=== PATIENT | male | born 1930 | race Caucasian/White ===

== ENCOUNTER 2022-05-27 19:42 | Emergency (ER) | payer MEDICARE, OTHER ==
[~2022-05-27] VITALS: Ht 170.2 cm; Wt 72.6 kg
--- NOTE | 2022-05-27 19:55 | NUR ---
TO ER BED 13, [id number] FROM [facility] AT THE [facility] C/O F/C CHANGE TODAY NOW HAS PAIN, AAOX3, BREATHING EVEN AND NON LABORED, CONNECTED TO MONITOR, AWAITING MD ALANIZ
[2022-05-27] MEDS ORDERED: LIDOCAINE 2% JEL UROJET 10 ML MM ONE (20:35)
[2022-05-27 21:41] LABS: BASOPHILS % (AUTO) 0.3 % (0.0-2.0); EOSINOPHILS % (AUTO) 0.9 % (0.0-6.0); HEMATOCRIT 38 % (39-51); HEMOGLOBIN 12.7 g/dL (13.5-17.5); LYMPHOCYTES # (AUTO) 0.6 K/uL (0.8-4.8); MEAN CORPUSCULAR HGB CONC 34 g/dl (31.0-36.0); MEAN CORPUSCULAR VOLUME 86 fL (80-96); MONOCYTES # (AUTO) 0.7 K/uL (0.1-1.30); MONOCYTES % (AUTO) 8.1 % (2.0-12.0); NEUTROPHILS # (AUTO) 7.7 K/uL (1.8-8.9); NEUTROPHILS % (AUTO) 84.7 % (43.0-81.0); PLATELET COUNT (AUTO) 121 K/uL (150-450); WHITE BLOOD COUNT (AUTO) 9.1 K/uL (4.3-11.0)
[2022-05-27 21:42] LABS: BILIRUBIN,URINE NEGATIVE (NEGATIVE); COLOR,URINE YELLOW (YELLOW); LEUKOCYTE ESTERASE ,URINE 3+ (NEGATIVE); NITRITE, URINE NEGATIVE (NEGATIVE); PH,URINE 8.5 (5.0-8.0); PROTEIN,URINE 3+ mg/dl (NEGATIVE); UGLUCOSE NEGATIVE (NEGATIVE); UROBILINOGEN,URINE 0.2 EU/dL (0.2)
[2022-05-27 21:57] LABS: CARBON DIOXIDE 23 mmol/L (21-32); CHLORIDE 97 mmol/L (98-107); CREATININE 1.2 mg/dL (0.6-1.3); GLUCOSE 120 mg/dL (74-106); POTASSIUM 4.8 mmol/L (3.5-5.1); SODIUM SERUM 130 mmol/L (136-145); UREA NITROGEN, BLOOD 30 mg/dL (7-18)
[2022-05-27 22:03] LABS: ALANINE AMINOTRANSFERASE 14 U/L (12-78); ALBUMIN 3.4 g/dL (3.4-5.0); ALKALINE PHOSPHATASE 93 U/L (46-116); ASPARTATE AMINOTRANSFERASE 22 U/L (15-37); BILIRUBIN,DIRECT 0.3 mg/dL (0.0-0.2); BILIRUBIN,TOTAL 0.7 mg/dL (0.2-1.0)
[2022-05-27 22:10] LABS: BACTERIA,URINE Many /HPF (None Seen); WBC,URINE 21-50 /HPF (0-3)
[2022-05-27 22:11] LABS: SQUAMOUS EPITHELIAL CELL,UR Few /HPF (None Seen); TRIPLE PHOSPHATE CRYSTAL,UR Moderate /HPF (None Seen)
[2022-05-27 22:12] LABS: URINE AMORPHOUS URATE Many /HPF (None Seen)
[2022-05-27 22:36] LABS: LIPASE 158 U/L (73-393)
[2022-05-27] MEDS ORDERED: CEFTRIAXONE 1GM BAG (ER ONLY) 50 ML IV ONE (22:44)
--- NOTE | 2022-05-27 22:45 | NUR ---
CALLED [facility] SET UP BLS TRANSPORT ETA 60-70 MIN PER EVA
[2022-05-27] MEDS ORDERED: CEPH500T PO ×2 (22:47→22:52)
[2022-05-27] MEDS ORDERED: CEFTRIAXONE 1GM BAG (ER ONLY) 1 GM/50 ML PIGGYBACK IV ONE (23:00)
[2022-05-27] MEDS ORDERED: IV NS 0.9% 1,000 ML BAG IV ONE (23:00)
--- NOTE | 2022-05-27 23:10 | NUR ---
IV STARTED ON LFA 20G
--- NOTE | 2022-05-28 00:14 | NUR ---
IV removed. Catheter intact and site benign. Pressure and 4x4 applied to site. No bleeding noted.Patient discharged to home in stable condition. Written and verbal after care instructions given. Patient verbalizes understanding of instruction.
[2022-05-28 00:20] VITALS: BP 140/79
== END 2022-05-28 00:21 | disposition home or self-care (01) ==
LOC: ER 19:50
DX: N39.0 Urinary tract infection, site not specified (principal); R31.9 Hematuria, unspecified
CPT/HCPCS: 99284; 96365; 51702; 85025; 80048; 87086 ×2; 83690; 80076; 81001; 36415; J3490; J0696

== ENCOUNTER 2022-06-02 17:27 | Emergency (ER) | payer MEDICARE, OTHER ==
[~2022-06-02] VITALS: Ht 170.2 cm; Wt 72.6 kg
[~2022-06-02 17:27] MED LIST: CEPH500T PO
[2022-06-02] MEDS ORDERED: TAMS-12 PO (18:21)
[2022-06-02] MEDS ORDERED: CEPH500C2 PO (18:21)
[2022-06-02] MEDS ORDERED: FERR325T24 PO (18:21)
[2022-06-02] MEDS ORDERED: DIVA-76 PO (18:21)
[2022-06-02] MEDS ORDERED: LACT10SO3 PO (18:21)
[2022-06-02] MEDS ORDERED: MULT-447 PO (18:21)
[2022-06-02] MEDS ORDERED: ASCO-352 PO (18:21)
[2022-06-02] MEDS ORDERED: CHOL100043 PO (18:21)
[2022-06-02] MEDS ORDERED: KETOROLAC TROMETHAMINE INJ 30 MG/ML VIAL IM ONE (18:30)
[2022-06-02] MEDS ORDERED: KETOROLAC TROMETHAMINE INJ 30 MG/ML VIAL ONE (19:15)
--- NOTE | 2022-06-02 20:13 | NUR ---
PT IN BED 12 BREATHING UNLBAORED ON ROOM AIR 98% O2SAT. C/O HINKLE CATHETER OBSTRUCTION WITH PAIN 08/29.
--- NOTE | 2022-06-02 20:14 | NUR ---
HINKLE CATHETER FLUSHED NO IMPROVMENT.
--- NOTE | 2022-06-02 20:41 | NUR ---
Zhang carroll in ED - 06/02/22 at 2041 by LSTOOR ARIN KUNZ WAS MOVED 5CM CT SCAN SUGGESTED URINE RETURNED UPON ADVANCMENT NO LONGER OBSTRUCTED.
--- NOTE | 2022-06-02 20:42 | NUR ---
HINKLE CATHERTER WAS MOVED 5CM CT SCAN SUGGESTED URINE RETURNED UPON ADVANCMENT NO LONGER OBSTRUCTED.
--- NOTE | 2022-06-02 20:48 | NUR ---
[facility] CALLED FOR BLS GOING BACK TO FACILITY PER YOUNG 10 MIN ETA
[2022-06-02 21:11] VITALS: BP 162/89
== END 2022-06-02 21:12 | disposition home or self-care (01) ==
LOC: ER 17:50
DX: T83.028A Displacement of other urinary catheter, initial encounter (principal); Z79.899 Other long term (current) drug therapy
CPT/HCPCS: 99285; 74176; 96372; J1885

== ENCOUNTER 2022-06-19 10:57 | Emergency (ER) | payer MEDICARE, OTHER ==
[~2022-06-19] VITALS: Ht 165.1 cm; Wt 72.6 kg
[~2022-06-19 10:57] MED LIST changes: +ASCO-352 PO; +CEPH500C2 PO; -CEPH500T PO; +CHOL100043 PO; +DIVA-76 PO; +FERR325T24 PO; +LACT10SO3 PO; +MULT-447 PO; +TAMS-12 PO
--- NOTE | 2022-06-19 11:28 | NUR ---
AT BEDSIDE FOR EVAL
[2022-06-19 11:30] LABS: BASOPHILS % (AUTO) 0.4 % (0.0-2.0); EOSINOPHILS % (AUTO) 0.7 % (0.0-6.0); HEMATOCRIT 38 % (39-51); HEMOGLOBIN 12.5 g/dL (13.5-17.5); LYMPHOCYTES # (AUTO) 0.9 K/uL (0.8-4.8); LYMPHOCYTES % (AUTO) 10.5 % (20.0-44.0); MEAN CORPUSCULAR HGB CONC 33 g/dl (31.0-36.0); MEAN CORPUSCULAR VOLUME 90 fL (80-96); MONOCYTES # (AUTO) 1.1 K/uL (0.1-1.30); MONOCYTES % (AUTO) 12.8 % (2.0-12.0); NEUTROPHILS # (AUTO) 6.3 K/uL (1.8-8.9); NEUTROPHILS % (AUTO) 75.6 % (43.0-81.0); PLATELET COUNT (AUTO) 95 K/uL (150-450); RED BLOOD CELL COUNT(AUTO) 4.27 MIL/uL (4.5-6.0); WHITE BLOOD COUNT (AUTO) 8.3 K/uL (4.3-11.0)
[2022-06-19 11:41] LABS: CALCIUM, SERUM 8.9 mg/dL (8.5-10.1); CREATININE 0.9 mg/dL (0.6-1.3); POTASSIUM 4.2 mmol/L (3.5-5.1)
--- NOTE | 2022-06-19 11:45 | NUR ---
PHLEBOTOMIS AT BEDSIDE
--- NOTE | 2022-06-19 11:50 | NUR ---
HINKLE CATHETER PLACED PER MD ORDER. 18F COUDE. URINE SAMPLE COLLECTED AND SENT TO LAB.
[2022-06-19 11:58] LABS: BILIRUBIN,URINE NEGATIVE (NEGATIVE); COLOR,URINE DARK YELLOW (YELLOW); LEUKOCYTE ESTERASE ,URINE 3+ (NEGATIVE); NITRITE, URINE POSITIVE (NEGATIVE); PH,URINE 8.5 (5.0-8.0); PROTEIN,URINE 2+ mg/dl (NEGATIVE); UGLUCOSE NEGATIVE (NEGATIVE); UROBILINOGEN,URINE 0.2 EU/dL (0.2)
[2022-06-19 12:25] LABS: BACTERIA,URINE Moderate /HPF (None Seen); SQUAMOUS EPITHELIAL CELL,UR Moderate /HPF (None Seen); WBC,URINE 51-80 /HPF (0-3)
[2022-06-19] MEDS ORDERED: IV NS 0.9% 1,000 ML IV ONE (12:30)
[2022-06-19] MEDS ORDERED: CEFP200T14 PO ×2 (12:40→15:34)
[2022-06-19] MEDS ORDERED: CEFTRIAXONE 1GM BAG (ER ONLY) 50 ML IV ONE (12:55)
[2022-06-19] MEDS ORDERED: CEFTRIAXONE 1 G in IV D5W 50 ML IV ONE (13:00)
[2022-06-19 13:24] LABS: BASOPHILS % (MANUAL) 0 % (0.0-2.0); EOSINOPHILS % (MANUAL) 1 % (0-4); LYMPHOCYTES % (MANUAL) 12 % (16-48); MONOCYTES % (MANUAL) 14 % (0-11.0); NEUTROPHILS % (MANUAL) 73 (42-76)
--- NOTE | 2022-06-19 14:15 | NUR ---
CALLED [facility] FOR TRANSPORT ETA 15 MINS.
--- NOTE | 2022-06-19 14:33 | NUR ---
[facility] unit [facility] here for transport report to Doris Harrison
--- NOTE | 2022-06-19 14:39 | NUR ---
Patient discharged to home in stable condition. Written and verbal after care instructions given. Patient verbalizes understanding of instruction. IV removed. Catheter intact and site benign. Pressure and 4x4 applied to site. No bleeding noted.
[2022-06-19 15:44] VITALS: BP 147/67
== END 2022-06-19 15:45 | disposition home or self-care (01) ==
LOC: ER 11:04
DX: N39.0 Urinary tract infection, site not specified (principal); Z79.899 Other long term (current) drug therapy
CPT/HCPCS: 99284; 96365; 51702; 85025; 80048; 87086; 81001; 36415; 85007; J0696 ×2; J7060; A4223